=== PATIENT | female | born 1975 | race Caucasian/White ===

== ENCOUNTER 2017-06-03 07:07 | Day surgery (SDC) | payer MEDICARE, MEDICAID ==
[~2017-06-03] VITALS: Ht 160 cm; Wt 63.2 kg
[2017-06-03 07:50] VITALS: BP 110/53
== END 2017-06-03 13:00 ==
LOC: RAD 07:07 → OUT 13:00
PROVIDERS: ATTEND Internal Medicine
DX: A85 Other viral encephalitis, not elsewhere classified (principal); B34.1 Enterovirus infection, unspecified; B00.9 Herpesviral infection, unspecified; G89.4 Chronic pain syndrome
CPT/HCPCS: 62270